=== PATIENT | male | born 1990 | race Caucasian/White ===

== ENCOUNTER 2021-05-20 19:06 | Emergency (ER) | payer SELFPAY ==
[~2021-05-20] VITALS: Ht 165.1 cm; Wt 100.0 kg
[2021-05-20 19:35] VITALS: BP 134/69
--- NOTE | 2021-05-20 20:53 | RAD ---
INDICATION: Reason: RLE PAIN / Spl. Instructions: / History: COMPARISON: None. TECHNIQUE: Grayscale, color and doppler ultrasound images were obtained of the right lower extremity venous vasculature. RIGHT: No thrombus identified in the common femoral vein, femoral vein, popliteal vein or visualized calf ve ins. IMPRESSION: * No thrombus identified in deep venous system of right lower extremity. Electronically signed by: Brayan Valle MD (05/20/2021 8:50 PM) [id number]
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
--- NOTE | 2021-05-21 00:46 | RAD ---
INDICATION: Reason: fall pain / Spl. Instructions: / History: COMPARISON: None. IMPRESSION: Lumbar spine: 3 views obtained. Degenerative changes the lumbar spine. Mild wedging of the T12 verteb ral body of unknown age. No evidence of dislocation. Mild degenerative changes including facet hypert rophy. Electronically signed by: Brayan Valle MD (05/21/2021 12:43 AM) [id number]
== END 2021-05-20 21:55 | disposition home or self-care (01) ==
LOC: ER 19:06
DX: S40.022A Contusion of left upper arm, initial encounter (principal); M54.10 Radiculopathy, site unspecified; F17.200 Nicotine dependence, unspecified, uncomplicated; W18.39XA Other fall on same level, initial encounter; Y93.89 Activity, other specified; Y92.89 Other specified places as the place of occurrence of the external cause; Y99.8 Other external cause status
CPT/HCPCS: 72100; 93971; 99284